=== PATIENT | female | born 1945 | race Caucasian/White ===

== ENCOUNTER → 2020-11-04 08:53 | Outpatient (CLI) | payer MEDICARE, OTHER, SELFPAY | PROVIDERS: Visit Provider Specialist | DX: N39.0 Urinary tract infection, site not specified (principal); N39.9 Disorder of urinary system, unspecified; N95.2 Postmenopausal atrophic vaginitis; Z87.440 Personal history of urinary (tract) infections | CPT/HCPCS: 81002; 87077; 87086; 87186; 99213 ==

== ENCOUNTER → 2021-03-27 14:43 | Outpatient (CLI) | payer MEDICARE, OTHER, SELFPAY | PROVIDERS: Referring Provider Specialist; Visit Provider Specialist | DX: N39.0 Urinary tract infection, site not specified (principal); N95.2 Postmenopausal atrophic vaginitis; Z87.440 Personal history of urinary (tract) infections | CPT/HCPCS: 51798; 81002; 87077; 87086; 87186; 99213 ==

== ENCOUNTER → 2021-06-24 17:26 | Outpatient (CLI) | payer MEDICARE, OTHER, SELFPAY ==
[2021-06-24 18:20] LABS: Appearance Urine UA CLOUDY; Bilirubin Urine UA NEGATIVE (NEGATIVE); Glucose Urine UA TRACE g/dL (Negative); Ketones Urine UA NEGATIVE (NEGATIVE); Leukocyte Esterase Urine UA 3+ (NEGATIVE); Nitrite Urine UA POSITIVE (Negative); Occult Blood Urine UA 3+ (Negative); Protein Urine UA 2+ (Negative)
[2021-06-24 18:21] LABS: Color Urine UA Dark Yellow; pH Urine UA 5.5 (4.5-8.0)
[2021-06-24 18:29] LABS: Amorphous Sediment Urine 1+; Bacteria Urine Many (>30); Culture Indicated Urine Specimen Cultured; Mucus Urine 1+ (Negative); RBC Urine 1-5/HPF (0-5/HPF); Squamous Epithelial Cell Urine 0-1 /HPF (0-5/HPF); WBC Urine >100/HPF (0-5/HPF)
== END ==
PROVIDERS: PCP Family Medicine; Referring Provider Specialist; Visit Provider Specialist
DX: N39.0 Urinary tract infection, site not specified (principal); R30.0 Dysuria; Z87.440 Personal history of urinary (tract) infections
CPT/HCPCS: 81001; 87077; 87086; 87186

== ENCOUNTER → 2021-12-08 11:57 | Outpatient (CLI) | payer MEDICARE, OTHER, SELFPAY ==
[2021-12-08 13:22] LABS: Appearance Urine UA CLOUDY; Bilirubin Urine UA NEGATIVE (NEGATIVE); Color Urine UA YELLOW; Glucose Urine UA TRACE g/dL (Negative); Ketones Urine UA NEGATIVE (NEGATIVE); Leukocyte Esterase Urine UA 3+ (NEGATIVE); Nitrite Urine UA POSITIVE (Negative); Occult Blood Urine UA 3+ (Negative); Protein Urine UA 2+ (Negative); Specific Gravity Urine UA 1.015 (1.000-1.035)
[2021-12-08 13:48] LABS: pH Urine UA 5.5 (4.5-8.0)
[2021-12-08 13:53] LABS: Amorphous Sediment Urine 1+; Bacteria Urine Moderate (10-30); Culture Indicated Urine Specimen Cultured; RBC Urine 10-30/HPF (0-5/HPF); Squamous Epithelial Cell Urine 0-1 /HPF (0-5/HPF); WBC Urine 10-30/HPF (0-5/HPF)
== END ==
PROVIDERS: PCP Family Medicine; Referring Provider Specialist; Visit Provider Specialist
DX: R30.0 Dysuria (principal)
CPT/HCPCS: 81001; 87077; 87086; 87186

== ENCOUNTER → 2022-02-26 14:42 | Outpatient (CLI) | payer MEDICARE, OTHER, SELFPAY ==
[2022-02-26 15:16] LABS: Appearance Urine UA CLEAR; Bilirubin Urine UA NEGATIVE (NEGATIVE); Color Urine UA YELLOW; Glucose Urine UA NEGATIVE (Negative); Ketones Urine UA NEGATIVE (NEGATIVE); Leukocyte Esterase Urine UA NEGATIVE (NEGATIVE); Nitrite Urine UA NEGATIVE (Negative); Occult Blood Urine UA 3+ (Negative); Protein Urine UA NEGATIVE (Negative); Specific Gravity Urine UA <=1.005 (1.000-1.035); Urobilinogen Urine UA 0.2 E.U./dL (0.2)
[2022-02-26 15:24] LABS: Bacteria Urine None Seen; Culture Indicated Urine Cult Not Indicated; RBC Urine 10-30/HPF (0-5/HPF); Squamous Epithelial Cell Urine 0-1 /HPF (0-5/HPF); WBC Urine None Seen (0-5/HPF); pH Urine UA 5.5 (4.5-8.0)
== END ==
PROVIDERS: PCP Family Medicine; Visit Provider Specialist
DX: R30.0 Dysuria (principal); N95.2 Postmenopausal atrophic vaginitis; R39.9 Unspecified symptoms and signs involving the genitourinary system; Z87.440 Personal history of urinary (tract) infections
CPT/HCPCS: 52000; 81001; 81002; 99215

== ENCOUNTER → 2023-02-03 10:23 | Outpatient (CLI) | payer MEDICARE, OTHER, SELFPAY | PROVIDERS: PCP Family Medicine; Visit Provider Specialist | DX: N39.0 Urinary tract infection, site not specified (principal); R31.9 Hematuria, unspecified; N95.2 Postmenopausal atrophic vaginitis; N39.9 Disorder of urinary system, unspecified; Z87.440 Personal history of urinary (tract) infections | CPT/HCPCS: 51798; 81002; 87077; 87086; 87186; 99215 ==

== ENCOUNTER → 2023-07-13 08:11 | Outpatient (CLI) | payer MEDICARE, OTHER, SELFPAY | PROVIDERS: PCP Family Medicine; Visit Provider Specialist | DX: N95.2 Postmenopausal atrophic vaginitis (principal); N39.0 Urinary tract infection, site not specified; R31.9 Hematuria, unspecified; R39.9 Unspecified symptoms and signs involving the genitourinary system; Z87.440 Personal history of urinary (tract) infections | CPT/HCPCS: 51798; 81002; 87077; 87086; 87186; 99215 ==

== ENCOUNTER → 2023-10-14 09:04 | Outpatient (CLI) | payer MEDICARE, OTHER, SELFPAY | PROVIDERS: PCP Family Medicine; Visit Provider Specialist | DX: N39.0 Urinary tract infection, site not specified (principal); N95.2 Postmenopausal atrophic vaginitis; N39.42 Incontinence without sensory awareness; R39.9 Unspecified symptoms and signs involving the genitourinary system; Z87.440 Personal history of urinary (tract) infections | CPT/HCPCS: 51798; 81002; 87077; 87086; 87186; 99215 ==